=== PATIENT | female | born 1980 | race African-American/Black ===

== ENCOUNTER 2017-11-19 15:15 | Emergency (ER) | END 2017-11-19 16:24 | disposition home or self-care (01) ==

== ENCOUNTER 2018-10-23 17:07 | Emergency (ER) | payer MEDICARE, OTHER ==
[~2018-10-23] VITALS: Ht 167.6 cm; Wt 52.4 kg
[~2018-10-23 17:07] MED LIST: ALBU8.5H8; ALBU8.5H8 INH; AZIT250T PO; BENZ-6 PO; CEPH-443 PO; CLIN300C10 PO; CODE118S PO; CODE5LIQ2 PO; CYCL10TA7 PO; FER325 PO; FIORICET PO; GUAI118L4 PO; GUAI118L94 PO; GUAI5SYR2 PO; IBUP-1542 PO; IBUP-1544 PO; MED4DP PO; METO10TA92 PO; NAPR-688 PO; NITR-58 PO; PRED20TA PO; PROM6.25 PO; PROM6.256 PO; SODI44SP11 NASAL; TRAM50TA2 PO
[2018-10-23 17:14] VITALS: BP 115/62; PULSE 69; RESP 20; Ht 167.6 cm; Wt 52.4 kg
[2018-10-24] MEDS ORDERED: PROM5SYR2 PO (14:15)
[2018-10-24] MEDS ORDERED: AZIT250T PO (14:15)
== END 2018-10-23 20:00 | disposition left against medical advice (07) ==
LOC: FTE 17:07
DX: Z53.21 Procedure and treatment not carried out due to patient leaving prior to being seen by health care provider (principal)

== ENCOUNTER 2018-10-24 12:07 | Emergency (ER) | payer MEDICARE, OTHER ==
[2018-10-24] MEDS ORDERED: PROM5SYR2 PO (14:15)
[2018-10-24] MEDS ORDERED: AZIT250T PO (14:15)
--- NOTE | 2018-10-24 14:19 | ERD ---
ER Documentation Chief Complaint Chief Complaint HPI 38-year-old female presents with complaint of cough for the past 2 weeks. Patient states that cough is worse at night. She also states is been having some intermittent fevers. Patient denies night sweats, weight loss, fatigue, hemoptysis, wheezing, dyspnea, pleuritic chest pain, or orthopnea. Denies past medical history. Denies allergies. Denies medications. Denies surgeries. Denies alcohol, tobacco, or drug use. ROS All systems reviewed and are negative except as per history of present illness. Medications Home Meds Active Scripts Promethazine HCl/Codeine (Prometh-Codein 6.25-10 mg/5 ml) 5 Ml Syrup, 5 ML PO Q4 for cough, #4 OZ Prov:ELIN MI 10/24/18 Azithromycin* (Zithromax*) 250 Mg Tablet, 250 MG PO .ZPACK DIRECTED for cough, #6 TAB TAKE 500 MG (2 TABS) THE FIRST DAY THEN 250 MG (1 TAB) DAYS 2-5 Prov:ELIN MI 10/24/18 Metoclopramide* (Reglan*) 10 Mg Tablet, 10 MG PO Q8 PRN for NAUSEA AND/OR VO MITING, #10 TAB Prov:EASTON GUZMAN MD 11/19/17 Acetamin/Butalbital/Caffeine* (Fioricet*) [id number] Tab, 2 TAB PO Q6H PRN for PAIN, #30 TAB Prov:EASTON GUZMAN MD 11/19/17 Albuterol Sulfate* (Proair HFA*) 8.5 Gm Hfa.aer.ad, 2 PUFF INH Q4, #1 INHALER Prov:DANAE REBOLLAR 05/01/16 Nitrofurantoin Monohyd Macrocr* (Macrobid*) 100 Mg Capsr, 100 MG PO BID for 7 Days, CAP Prov:DANAE REBOLLAR 05/01/16 Ibuprofen* (Motrin*) 600 Mg Tab, 600 MG PO Q6, #30 TAB Prov:DANAE REBOLLAR 05/01/16 Guaifenesin-Dextromethorphan* (Robitussin* DM) 100MG/10MG/5ML Syrup, 5 ML PO Q4H PRN for COUGH for 7 Days, ML Prov:MARGY WOOD PA-C 04/13/16 Azithromycin* (Zithromax*) 250 Mg Tablet, 250 MG PO DAILY for 5 Days, #6 TAB Prov:MARGY WOOD PA-C 04/13/16 Albuterol Sulfate* (Proair HFA*) 8.5 Gm Hfa.aer.ad, 2 PUFF INH Q4, #1 INHALER Prov:LUIS PALMER PA-C 02/14/16 Benzonatate* (Tessalon Perle*) 100 Mg Capsule, 100 MG PO Q8H PRN for COUGH, #30 CAP Prov:MURIEL OSEGUERA PA-C 01/04/16 Promethazine w/Codeine* (Phenergan w/Codeine* Syrup) 5 Ml Syrup, 5 ML PO Q4H PRN for COUGH, #100 ML Prov:MURIEL OSEGUERA PA-C 01/04/16 Ibuprofen* (Motrin*) 600 Mg Tab, 600 MG PO Q6, #20 TAB Prov:OLGA OCHOA MD 12/05/15 Tramadol HCl (Tramadol HCl) 50 Mg Tablet, 50 MG PO Q4 PRN for PAIN, #16 TAB Prov:OLGA OCHOA MD 12/05/15 Sodium Chloride (Saline Nasal [place]) 45 Ml [place], 2 SPRAYS NASAL Q2H PRN for NASAL CONGESTION, #1 BOTTLE Prov:DOLLY NETTLES NP 11/24/15 Guaifenesin-Codeine Phosphate* (Guaifenesin* with Codeine Liq) 120 Ml Liquid, 5 ML PO Q4H PRN for COUGH, #60 ML Prov:DOLLY NETTLES NP 11/24/15 Benzonatate* (Tessalon Perle*) 100 Mg Capsule, 100 MG PO Q8H PRN for COUGH, #20 CAP Prov:LUIS PALMER PA-C 10/17/15 Promethazine w/Codeine (Phenergan w/Codeine Syrup) 5 Ml Syrup, 5 ML PO Q6 PRN for COUGH, #120 ML Prov:LUIS PALMER PA-C 10/17/15 Albuterol Sulfate* (Proair HFA*) 8.5 Gm Hfa.aer.ad, 2 PUFF INH Q4, #1 INHALER Prov:LUIS PALMER PA-C 10/17/15 Prednisone* (Prednisone*) 20 Mg Tab, 40 MG PO DAILY for 4 Days, TAB Prov:MURIEL OSEGUERA PA-C 10/09/15 Albuterol Sulfate* (Proair HFA*) 8.5 Gm Hfa.aer.ad, 2 PUFF INH Q4, #1 INHALER Prov:MURIEL OSEGUERA PA-C 10/09/15 Guaifenesin/D-Methorphan Hb/Pe (ROBITUSSIN COUGH-COLD CF LIQ) 118 Ml Liquid, 5 ML PO Q8, #118 ML Prov:KEVIN BELTRE DO 10/07/15 Clindamycin Hcl* (Clindamycin Hcl*) 300 Mg Capsule, 300 MG PO TID for 7 Days, CAP Prov:KEVIN BELTRE DO 10/07/15 Cyclobenzaprine Hcl* (Cyclobenzaprine Hcl*) 10 Mg Tablet, 10 MG PO TID, #15 TAB Prov:FLACO CAMACHO NP 09/17/15 Promethazine w/Codeine* (Phenergan w/Codeine* Syrup) 5 Ml Syrup, 10 ML PO Q4H PRN for COUGH for 4 Days, ML Prov:LUANN DIEZ NP 08/06/15 Methylprednisolone* (Medrol* DOSE PACK) 4 Mg/Dose-Pack Tab.ds.pk, 4 MG PO . DIRECTED for 7 Days, PACKET Prov:LUANN DIEZ NP 08/06/15 Albuterol Sulfate* (Proair HFA*) 8.5 Gm Hfa.aer.ad, 2 PUFF INH Q4, #1 INHALER Prov:LUANN DIEZ NP 08/06/15 Guaifenesin-Codeine Phosphate* (Robitussin* AC) 5 Ml Syrup, 5 ML PO Q6H PRN for COUGH, #120 ML Prov:KEVIN BELTRE DO 07/22/15 Cyclobenzaprine Hcl* (Cyclobenzaprine Hcl*) 10 Mg Tablet, 10 MG PO TID, #10 TAB Prov:KEVIN BELTRE DO 07/22/15 Naproxen* (Naproxen*) 500 Mg Tablet, 500 MG PO BID PRN for PAIN, #14 TAB Prov:KEVIN BELTRE DO 07/22/15 Albuterol Sulfate* (Proair HFA*) 8.5 Gm Hfa.aer.ad, 2 PUFF INH Q4H PRN for WHEEZING AND SOB, #1 INHALER Prov:KEVIN BELTRE DO 07/22/15 Promethazine Hcl* (Phenergan* Liq) 6.25 Mg/5 Ml Syrup, 6.25 MG PO Q6H PRN for COUGH, #60 ML Prov:DONAL LIGHT PA-C 04/16/15 Albuterol Sulfate* (Proair HFA*) 8.5 Gm Hfa.aer.ad, 2 PUFF INH Q4H PRN for WHEEZING AND SOB, #1 INH Prov:DONAL LIGHT PA-C 04/16/15 Ibuprofen* (Ibuprofen*) 800 Mg Tablet, 800 MG PO Q6H PRN for PAIN, #30 TAB do not exceed this dose. This is the max dose Prov:DONAL LIGHT PA-C 04/16/15 Cephalexin* (Keflex*) 500 Mg Capsule, 500 MG PO QID for 5 Days, CAP Prov:OLGA OCHOA MD 03/14/15 Ibuprofen* (Motrin*) 600 Mg Tab, 600 MG PO Q6, #20 TAB Prov:OLGA OCHOA MD 03/14/15 Albuterol Sulfate* (Proair HFA*) 8.5 Gm Hfa.aer.ad, 2 PUFF INH Q4 for 7 Days, INH 2 Refills Prov:OLGA OCHOA MD 03/14/15 Prednisone* (Prednisone*) 20 Mg Tab, 40 MG PO DAILY for 4 Days, TAB Prov:OLGA OCHOA MD 03/14/15 Reported Medications Ferrous Sulfate* (Ferrous Sulfate*) 325 Mg Tabec, 325 MG PO DAILY, TAB 02/07/15 Albuterol Sulfate* (Proair HFA*) 8.5 Gm Hfa.aer.ad, 1 PUFF EVERY 6 HOURS 12/15/12 Allergies Allergies: Coded Allergies: No Known Allergy (Unverified , 11/19/17) PMhx/Soc History of Surgery: Yes (hysterectomy 2017) Anesthesia Reaction: No Hx Neurological Disorder: Yes (migraine headache) Hx Respiratory Disorders: Yes (ASTHMA) Hx Cardiac Disorders: No Hx Psychiatric Problems: No Hx Miscellaneous Medical Probl: No Hx Alcohol Use: No Hx Substance Use: No Hx Tobacco Use: No FmHx Family History: No diabetes, No coronary disease, No other Physical Exam Physical Exam Const: No acute distress Head: Atraumatic Eyes: Normal Conjunctiva ENT: Normal External Ears, Nose and Mouth. Neck: Full range of motion. No meningismus. Resp: Clear to auscultation bilaterally Cardio: Regular rate and rhythm, no murmurs Abd: Soft, non tender, non distended. Normal bowel sounds Skin: No petechiae or rashes Back: No midline or flank tenderness Ext: No cyanosis, or edema Neur: Awake and alert Psych: Normal Mood and Affect Procedures/MDM MDM: Patient refused chest x-ray and wanted to be treated empirically with medication as she states she was in a patrick to leave. I have low suspicion for tubercolosis, pneumonia, pleural effusion, acute heart failure, foreign body aspiration, pulmonary embolism, pneumothorax, or other emergent etiology. Patients O2 sat is normal and is not having difficulty breathing, therefore patient is fit for discharge. Patient discharged with rx for azithromycin and promethazine to be used at night. And advised to follow up with PMD. Patient discharged with strict ER precautions. All questions answered at discharge. Departure Diagnosis: Primary Impression: Cough Condition: Stable Patient Instructions: Cough, Chronic, Uncertain Cause, (Adult) Referrals: [facility] YOU HAVE RECEIVED A MEDICAL SCREENING EXAM AND THE RESULTS INDICATE THAT YOU DO NOT HAVE A CONDITION THAT REQUIRES URGENT TREATMENT IN THE EMERGENCY DEPARTMENT. FURTHER EVALUATION AND TREATMENT OF YOUR CONDITION CAN WAIT UNTIL YOU ARE SEEN IN YOUR DOCTORS OFFICE WITHIN THE NEXT 1-2 DAYS. IT IS YOUR RESPONSIBILITY TO MAKE AN APPOINTMENT FOR FOLOW-UP CARE. IF YOU HAVE A PRIMARY DOCTOR --you should call your primary doctor and schedule an appointment IF YOU DO NOT HAVE A PRIMARY DOCTOR YOU CAN CALL OUR PHYSICIAN REFERRAL HOTLINE AT IF YOU CAN NOT AFFORD TO SEE A PHYSICIAN YOU CAN CHOSE FROM THE FOLLOWING [facility] [address] [facility] [address] [facility] [address] [facility] [address] [facility] [address] [facility]. [facility] [address] Additional Instructions: FOLLOW UP WITH YOUR PRIMARY CARE PHYSICIAN TOMORROW.Return to this facility if you are not improving as expected. ELIN MI October 24, 2018 14:19
== END 2018-10-24 14:41 | disposition home or self-care (01) ==
LOC: FTE 12:07
DX: R05 Cough (principal); J45.909 Unspecified asthma, uncomplicated
CPT/HCPCS: 99283

== ENCOUNTER 2018-11-15 10:45 | Emergency (ER) | payer MEDICARE, OTHER ==
[~2018-11-15] VITALS: Wt 52.5 kg
[~2018-11-15 10:45] MED LIST changes: +PROM5SYR2 PO
[2018-11-15 10:49] VITALS: BP 150/62
[2018-11-15] MEDS ORDERED: METHYLPREDNISOLONE 125 MG INJ IM STA (11:14)
[2018-11-15] MEDS ORDERED: ALBUTEROL 0.083% (NEB) 2.5 MG/3 ML AMP NEB STA (11:14)
[2018-11-15] MEDS ORDERED: IPRATROPIUM (NEB) 0.5 MG/2.5 ML AMP NEB STA (11:14)
--- NOTE | 2018-11-15 11:22 | ERD ---
ER Documentation Chief Complaint Chief Complaint COUGH X 5 DAYS HPI Patient is a 38 years old female with past medical history of asthma presenting to the clinic for persistent dry cough X 5 days. Patient denies any shortness of breath, chest pain, throat pain, coryza, sputum production. Patient reports taking [id number] Dimetapp without any resolution. Patient states that her cough is worse at night and keeps her from sleep and admits to headache with coughing only. Patient states that her current cough is not to her asthma exacerbation. Patient states that she has an albuterol inhaler which improves her cough at home. Patient is requesting promethazine with codeine. ROS All systems reviewed and are negative except as per history of present illness. Medications Home Meds Active Scripts Prednisone* (Prednisone*) 20 Mg Tab, 40 MG PO DAILY for 4 Days, TAB Prov:RONY KING PA-C 11/15/18 Dextromethorphan Hb-Promethazine Hcl* (Promethazine DM* Syrup) 473 Ml Syrup, 5 ML PO Q6 PRN for COUGH for 7 Days, ML Prov:RONY KING PA-C 11/15/18 Promethazine HCl/Codeine (Prometh-Codein 6.25-10 mg/5 ml) 5 Ml Syrup, 5 ML PO Q4 for cough, #4 OZ Prov:ELIN MI 10/24/18 Azithromycin* (Zithromax*) 250 Mg Tablet, 250 MG PO .ZPACK DIRECTED for cough, #6 TAB TAKE 500 MG (2 TABS) THE FIRST DAY THEN 250 MG (1 TAB) DAYS 2-5 Prov:ELIN MI 10/24/18 Metoclopramide* (Reglan*) 10 Mg Tablet, 10 MG PO Q8 PRN for NAUSEA AND/OR VOMITING, #10 TAB Prov:EASTON GUZMAN MD 11/19/17 Acetamin/Butalbital/Caffeine* (Fioricet*) [id number] Tab, 2 TAB PO Q6H PRN for PAIN, #30 TAB Prov:EASTON GUZMAN MD 11/19/17 Albuterol Sulfate* (Proair HFA*) 8.5 Gm Hfa.aer.ad, 2 PUFF INH Q4, #1 INHALER Prov:DANAE REBOLLAR 05/01/16 Nitrofurantoin Monohyd Macrocr* (Macrobid*) 100 Mg Capsr, 100 MG PO BID for 7 Days, CAP Prov:DANAE REBOLLAR 05/01/16 Ibuprofen* (Motrin*) 600 Mg Tab, 600 MG PO Q6, #30 TAB Prov:DANAE REBOLLAR 05/01/16 Guaifenesin-Dextromethorphan* (Robitussin* DM) 100MG/10MG/5ML Syrup, 5 ML PO Q4H PRN for COUGH for 7 Days, ML Prov:MARGY WOOD PA-C 04/13/16 Azithromycin* (Zithromax*) 250 Mg Tablet, 250 MG PO DAILY for 5 Days, #6 TAB Prov:MARGY WOODC 04/13/16 Albuterol Sulfate* (Proair HFA*) 8.5 Gm Hfa.aer.ad, 2 PUFF INH Q4, #1 INHALER Prov:LUIS PALMER PA-C 02/14/16 Benzonatate* (Tessalon Perle*) 100 Mg Capsule, 100 MG PO Q8H PRN for COUGH, #30 CAP Prov:MURIEL OSEGUERA PA-C 01/04/16 Promethazine w/Codeine* (Phenergan w/Codeine* Syrup) 5 Ml Syrup, 5 ML PO Q4H PRN for COUGH, #100 ML Prov:MURIEL OSEGUERA PA-C 01/04/16 Ibuprofen* (Motrin*) 600 Mg Tab, 600 MG PO Q6, #20 TAB Prov:OLGA OCHOA MD 12/05/15 Tramadol HCl (Tramadol HCl) 50 Mg Tablet, 50 MG PO Q4 PRN for PAIN, #16 TAB Prov:OLGA OCHOA MD 12/05/15 Sodium Chloride (Saline Nasal [place]) 45 Ml [place], 2 SPRAYS NASAL Q2H PRN for NASAL CONGESTION, #1 BOTTLE Prov:DOLLY NETTLES NP 11/24/15 Guaifenesin-Codeine Phosphate* (Guaifenesin* with Codeine Liq) 120 Ml Liquid, 5 ML PO Q4H PRN for COUGH, #60 ML Prov:DOLLY NETTLES [employer] 11/24/15 Benzonatate* (Tessalon Perle*) 100 Mg Capsule, 100 MG PO Q8H PRN for COUGH, #20 CAP Prov:LUIS PALMER PA-C 10/17/15 Promethazine w/Codeine (Phenergan w/Codeine Syrup) 5 Ml Syrup, 5 ML PO Q6 PRN for COUGH, #120 ML Prov:LUIS PALMER PA-C 10/17/15 Albuterol Sulfate* (Proair HFA*) 8.5 Gm Hfa.aer.ad, 2 PUFF INH Q4, #1 INHALER Prov:LUIS PALMER PA-C 10/17/15 Prednisone* (Prednisone*) 20 Mg Tab, 40 MG PO DAILY for 4 Days, TAB Prov:MURIEL OSEGUERA PA-C 10/09/15 Albuterol Sulfate* (Proair HFA*) 8.5 Gm Hfa.aer.ad, 2 PUFF INH Q4, #1 INHALER Prov:MURIEL OSEGUERA PA-C 10/09/15 Guaifenesin/D-Methorphan Hb/Pe (ROBITUSSIN COUGH-COLD CF LIQ) 118 Ml Liquid, 5 ML PO Q8, #118 ML Prov:KEVIN BELTRE DO 10/07/15 Clindamycin Hcl* (Clindamycin Hcl*) 300 Mg Capsule, 300 MG PO TID for 7 Days, CAP Prov:KEVIN BELTRE DO 10/07/15 Cyclobenzaprine Hcl* (Cyclobenzaprine Hcl*) 10 Mg Tablet, 10 MG PO TID, #15 TAB Prov:FLACO CAMACHO NP 09/17/15 Promethazine w/Codeine* (Phenergan w/Codeine* Syrup) 5 Ml Syrup, 10 ML PO Q4H PRN for COUGH for 4 Days, ML Prov:LUANN DIEZ NP 08/06/15 Methylprednisolone* (Medrol* DOSE PACK) 4 Mg/Dose-Pack Tab.ds.pk, 4 MG PO . DIRECTED for 7 Days, PACKET Prov:LUANN DIEZ NP 08/06/15 Albuterol Sulfate* (Proair HFA*) 8.5 Gm Hfa.aer.ad, 2 PUFF INH Q4, #1 INHALER Prov:LUANN DIEZ NP 08/06/15 Guaifenesin-Codeine Phosphate* (Robitussin* AC) 5 Ml Syrup, 5 ML PO Q6H PRN for COUGH, #120 ML Prov:PATT,KEVIN DO 07/22/15 Cyclobenzaprine Hcl* (Cyclobenzaprine Hcl*) 10 Mg Tablet, 10 MG PO TID, #10 TAB Prov:PATTKEVIN DO 07/22/15 Naproxen* (Naproxen*) 500 Mg Tablet, 500 MG PO BID PRN for PAIN, #14 TAB Prov:PATTSAN [facility] DO 07/22/15 Albuterol Sulfate* (Proair HFA*) 8.5 Gm Hfa.aer.ad, 2 PUFF INH Q4H PRN for WHEEZING AND SOB, #1 INHALER Prov:PATTSAN CARL[facility] DO 07/22/15 Promethazine Hcl* (Phenergan* Liq) 6.25 Mg/5 Ml Syrup, 6.25 MG PO Q6H PRN for COUGH, #60 ML Prov:DONAL LIGHT PA-C 04/16/15 Albuterol Sulfate* (Proair HFA*) 8.5 Gm Hfa.aer.ad, 2 PUFF INH Q4H PRN for WHEEZING AND SOB, #1 INH Prov:DONAL LIGHT PA-C 04/16/15 Ibuprofen* (Ibuprofen*) 800 Mg Tablet, 800 MG PO Q6H PRN for PAIN, #30 TAB do not exceed this dose. This is the max dose Prov:DONAL LIGHT PA-C 04/16/15 Cephalexin* (Keflex*) 500 Mg Capsule, 500 MG PO QID for 5 Days, CAP Prov:OLGA OCHOA MD 03/14/15 Ibuprofen* (Motrin*) 600 Mg Tab, 600 MG PO Q6, #20 TAB Prov:OLGA OCHOA MD 03/14/15 Albuterol Sulfate* (Proair HFA*) 8.5 Gm Hfa.aer.ad, 2 PUFF INH Q4 for 7 Days, INH 2 Refills Prov:OLGA OCHOA MD 03/14/15 Prednisone* (Prednisone*) 20 Mg Tab, 40 MG PO DAILY for 4 Days, TAB Prov:OLGA OCHOA MD 03/14/15 Reported Medications Ferrous Sulfate* (Ferrous Sulfate*) 325 Mg Tabec, 325 MG PO DAILY, TAB 02/07/15 Albuterol Sulfate* (Proair HFA*) 8.5 Gm Hfa.aer.ad, 1 PUFF EVERY 6 HOURS 12/15/12 Allergies Allergies: Coded Allergies: No Known Allergy (Unverified , 11/19/17) PMhx/Soc Patient reports of past medical history of asthma. Patient reports of past surgical history of total abdominal hysterectomy History of Surgery: Yes (hysterectomy 2016) Anesthesia Reaction: No Hx Neurological Disorder: Yes (migraine headache) Hx Respiratory Disorders: Yes (ASTHMA) Hx Cardiac Disorders: No Hx Psychiatric Problems: No Hx Miscellaneous Medical Probl: No Hx Alcohol Use: No Hx Substance Use: No Hx Tobacco Use: No FmHx Family History: No diabetes, No coronary disease, No other Physical Exam Vitals Vital Signs Date Temp Pulse Resp B/P (MAP) Pulse Ox O2 O2 Flow FiO2 Time Delivery Rate 11/15/18 104 18 100 Room Air 13:05 11/15/18 60 20 95 21 11:39 11/15/18 97.4 78 18 150/62 99 10:49 (91) Physical Exam Const: No acute distress Head: Atraumatic Eyes: Normal Conjunctiva ENT: Normal External Ears, Nose and Mouth. Neck: Full range of motion. No meningismus. Resp: Clear to auscultation bilaterally. Diminished breath sounds bilaterally. Cardio: Regular rate and rhythm, no murmurs Ext: No cyanosis, or edema Neur: Awake and alert Psych: Normal Mood and Affect Results 24 hrs Current Medications Medications Dose Sig/Zaki Start Time Status Last (Trade) Ordered Route PRN Stop Time Admin Dose Reason Admin Albuterol 5 mg ONCE STAT 11/15/18 DC 11/15/18 (Proventil NEB 11:14 11:35 0.083% (Neb)) 11/15/18 11:19 Ipratropium 1 mg ONCE STAT 11/15/18 DC 11/15/18 [place] NEB 11:14 11:35 (Atrovent 11/15/18 11:19 0.02% (Neb)) 125 mg ONCE STAT 11/15/18 DC 11/15/18 Methylprednis IM 11:14 11:26 olone Sodium 11/15/18 11:19 Succinate (Solu-Medrol) Procedures/MDM Patient was evaluated for recurring cough and was given nebulizer and Solu-M edrol IM in hospital improvement of symptoms. Lung exam post treatment had improved lung sounds that were CTA bilaterally. Patient requested promethazine with codeine, however, provider denied codeine stating that he will give promethazine HCL instead. Provider informed patient that codeine is not the solution to her problems and she needs to follow-up with her PCP which she has an appointment in the following week. Patient reports that she has been evaluated by internal control specialist in the past and states that her lungs are fine. X-ray was withheld as patient has presented to clinic multiple times in the past for similar symptoms with improve lung function post treatment in hospital. Departure Diagnosis: Primary Impression: Cough Condition: Stable Additional Instructions: Patient advised to return to the ED immediately for new or worsening symptoms. Patient advised to follow up with primary care provider in the next 24-48 hours. Patient verbalized understanding and agrees with treatment plan and course of action. If patient has no primary care they may follow up with [facility] + [facility] [address] [place] [id number] or [facility] [id number] [place] [phone] or [facility] [address] [place] [address] RONY KING PA-C November 15, 2018 11:22
[2018-11-15] MEDS ORDERED: PRED20TA PO (12:17)
[2018-11-15] MEDS ORDERED: D-ME473S2 PO (12:17)
[2018-11-15 13:05] VITALS: PULSE 104; RESP 18
== END 2018-11-15 13:05 | disposition home or self-care (01) ==
LOC: FTE 10:45
DX: R05 Cough (principal); J45.909 Unspecified asthma, uncomplicated
CPT/HCPCS: 94664; 96372; 99284; J2930

== ENCOUNTER 2018-12-28 08:25 | Emergency (ER) | payer MEDICARE, OTHER ==
[~2018-12-28] VITALS: Ht 160 cm; Wt 52.7 kg
[~2018-12-28 08:25] MED LIST changes: +D-ME473S2 PO
[2018-12-28 08:28] VITALS: BP 139/76; PULSE 93; RESP 17; Ht 160 cm; Wt 52.7 kg
--- NOTE | 2018-12-28 08:53 | ERD ---
ER Documentation Chief Complaint Chief Complaint cough, congestion, bug bites, onset 4 days, no sob HPI 38-year-old female with history of asthma is complaining of cough and congestion for 4 days. She states is usually worse at night. She is been does help temporarily. No fever. No phlegm. No hemoptysis or unplanned weight loss. Also is complaining of possible bug bite to the left knee. ROS All systems reviewed and are negative except as per history of present illness. Medications Home Meds Active Scripts Prednisone* (Prednisone*) 20 Mg Tab, 40 MG PO DAILY for 4 Days, TAB Prov:RONY KING PA-C 11/15/18 Dextromethorphan Hb-Promethazine Hcl* (Promethazine DM* Syrup) 473 Ml Syrup, 5 ML PO Q6 PRN for COUGH for 7 Days, ML Prov:RONY KING PA-C 11/15/18 Promethazine HCl/Codeine (Prometh-Codein 6.25-10 mg/5 ml) 5 Ml Syrup, 5 ML PO Q4 for cough, #4 OZ Prov:ELIN MI 10/24/18 Azithromycin* (Zithromax*) 250 Mg Tablet, 250 MG PO .ZPACK DIRECTED for cough, #6 TAB TAKE 500 MG (2 TABS) THE FIRST DAY THEN 250 MG (1 TAB) DAYS 2-5 Prov:ELIN MI 10/24/18 Metoclopramide* (Reglan*) 10 Mg Tablet, 10 MG PO Q8 PRN for NAUSEA AND/OR VOMITING, #10 TAB Prov:EASTON GUZMAN MD 11/19/17 Acetamin/Butalbital/Caffeine* (Fioricet*) [id number] Tab, 2 TAB PO Q6H PRN for PAIN, #30 TAB Prov:EASTON GUZMAN MD 11/19/17 Albuterol Sulfate* (Proair HFA*) 8.5 Gm Hfa.aer.ad, 2 PUFF INH Q4, #1 INHALER Prov:DANAE REBOLLAR 05/01/16 Nitrofurantoin Monohyd Macrocr* (Macrobid*) 100 Mg Capsr, 100 MG PO BID for 7 Days, CAP Prov:DANAE REBOLLAR 05/01/16 Ibuprofen* (Motrin*) 600 Mg Tab, 600 MG PO Q6, #30 TAB Prov:DANAE REBOLLAR 05/01/16 Guaifenesin-Dextromethorphan* (Robitussin* DM) 100MG/10MG/5ML Syrup, 5 ML PO Q4H PRN for COUGH for 7 Days, ML Prov:MARGY WOOD PA-C 04/13/16 Azithromycin* (Zithromax*) 250 Mg Tablet, 250 MG PO DAILY for 5 Days, #6 TAB Prov:MARGY WOOD PA-C 04/13/16 Albuterol Sulfate* (Proair HFA*) 8.5 Gm Hfa.aer.ad, 2 PUFF INH Q4, #1 INHALER Prov:LUIS PALMER PA-C 02/14/16 Benzonatate* (Tessalon Perle*) 100 Mg Capsule, 100 MG PO Q8H PRN for COUGH, #30 CAP Prov:MURIEL OSEGUERA PA-C 01/04/16 Promethazine w/Codeine* (Phenergan w/Codeine* Syrup) 5 Ml Syrup, 5 ML PO Q4H PRN for COUGH, #100 ML Prov:MURIEL OSEGUERA PA-C 01/04/16 Ibuprofen* (Motrin*) 600 Mg Tab, 600 MG PO Q6, #20 TAB Prov:OLGA OCHOA MD 12/05/15 Tramadol HCl (Tramadol HCl) 50 Mg Tablet, 50 MG PO Q4 PRN for PAIN, #16 TAB Prov:OLGA OCHOA MD 12/05/15 Sodium Chloride (Saline Nasal Pep) 45 Ml Pep, 2 SPRAYS NASAL Q2H PRN for NASAL CONGESTION, #1 BOTTLE Prov:DOLLY NETTLES NP 11/24/15 Guaifenesin-Codeine Phosphate* (Guaifenesin* with Codeine Liq) 120 Ml Liquid, 5 ML PO Q4H PRN for COUGH, #60 ML Prov:DOLLY NETTLES NP 11/24/15 Benzonatate* (Tessalon Perle*) 100 Mg Capsule, 100 MG PO Q8H PRN for COUGH, #20 CAP Prov:LUIS PALMER PA-C 10/17/15 Promethazine w/Codeine (Phenergan w/Codeine Syrup) 5 Ml Syrup, 5 ML PO Q6 PRN for COUGH, #120 ML Prov:LUIS PALMER PA-C 10/17/15 Albuterol Sulfate* (Proair HFA*) 8.5 Gm Hfa.aer.ad, 2 PUFF INH Q4, #1 INHALER Prov:LUIS PALMER PA-C 10/17/15 Prednisone* (Prednisone*) 20 Mg Tab, 40 MG PO DAILY for 4 Days, TAB Prov:MURIEL OSEGUERA PA-C 10/09/15 Albuterol Sulfate* (Proair HFA*) 8.5 Gm Hfa.aer.ad, 2 PUFF INH Q4, #1 INHALER Prov:MURIEL OSEGUERA PA-C 10/09/15 Guaifenesin/D-Methorphan Hb/Pe (ROBITUSSIN COUGH-COLD CF LIQ) 118 Ml Liquid, 5 ML PO Q8, #118 ML Prov:KEVIN BELTRE DO 10/07/15 Clindamycin Hcl* (Clindamycin Hcl*) 300 Mg Capsule, 300 MG PO TID for 7 Days, CAP Prov:KEVIN BELTRE DO 10/07/15 Cyclobenzaprine Hcl* (Cyclobenzaprine Hcl*) 10 Mg Tablet, 10 MG PO TID, #15 TAB Prov:FLACO CAMACHO NP 09/17/15 Promethazine w/Codeine* (Phenergan w/Codeine* Syrup) 5 Ml Syrup, 10 ML PO Q4H PRN for COUGH for 4 Days, ML Prov:LUANN DIEZ NP 08/06/15 Methylprednisolone* (Medrol* DOSE PACK) 4 Mg/Dose-Pack Tab.ds.pk, 4 MG PO . DIRECTED for 7 Days, PACKET Prov:LUANN DIEZ NP 08/06/15 Albuterol Sulfate* (Proair HFA*) 8.5 Gm Hfa.aer.ad, 2 PUFF INH Q4, #1 INHALER Prov:LUANN DIEZ NP 08/06/15 Guaifenesin-Codeine Phosphate* (Robitussin* AC) 5 Ml Syrup, 5 ML PO Q6H PRN for COUGH, #120 ML Prov:KEVIN BELTRE DO 07/22/15 Cyclobenzaprine Hcl* (Cyclobenzaprine Hcl*) 10 Mg Tablet, 10 MG PO TID, #10 TAB Prov:KEVIN BELTRE DO 07/22/15 Naproxen* (Naproxen*) 500 Mg Tablet, 500 MG PO BID PRN for PAIN, #14 TAB Prov:KEVIN BELTRE DO 07/22/15 Albuterol Sulfate* (Proair HFA*) 8.5 Gm Hfa.aer.ad, 2 PUFF INH Q4H PRN for WHEEZING AND SOB, #1 INHALER Prov:KEVIN BELTRE DO 07/22/15 Promethazine Hcl* (Phenergan* Liq) 6.25 Mg/5 Ml Syrup, 6.25 MG PO Q6H PRN for COUGH, #60 ML Prov:DONAL LIGHT PA-C 04/16/15 Albuterol Sulfate* (Proair HFA*) 8.5 Gm Hfa.aer.ad, 2 PUFF INH Q4H PRN for WHEEZING AND SOB, #1 INH Prov:DONAL LIGHT PA-C 04/16/15 Ibuprofen* (Ibuprofen*) 800 Mg Tablet, 800 MG PO Q6H PRN for PAIN, #30 TAB do not exceed this dose. This is the max dose Prov:DONAL LIGHT PA-C 04/16/15 Cephalexin* (Keflex*) 500 Mg Capsule, 500 MG PO QID for 5 Days, CAP Prov:OLGA OCHOA MD 03/14/15 Ibuprofen* (Motrin*) 600 Mg Tab, 600 MG PO Q6, #20 TAB Prov:OLGA OCHOA MD 03/14/15 Albuterol Sulfate* (Proair HFA*) 8.5 Gm Hfa.aer.ad, 2 PUFF INH Q4 for 7 Days, INH 2 Refills Prov:OLGA OCHOA MD 03/14/15 Prednisone* (Prednisone*) 20 Mg Tab, 40 MG PO DAILY for 4 Days, TAB Prov:OLGA OCHOA MD 03/14/15 Reported Medications Ferrous Sulfate* (Ferrous Sulfate*) 325 Mg Tabec, 325 MG PO DAILY, TAB 02/07/15 Albuterol Sulfate* (Proair HFA*) 8.5 Gm Hfa.aer.ad, 1 PUFF EVERY 6 HOURS 12/15/12 Allergies Allergies: Coded Allergies: No Known Allergy (Unverified , 11/19/17) PMhx/Soc Medical and Surgical Hx: pt denies Medical Hx, pt denies Surgical Hx History of Surgery: No Anesthesia Reaction: No Hx Neurological Disorder: No Hx Respiratory Disorders: No Hx Cardiac Disorders: No Hx Psychiatric Problems: No Hx Miscellaneous Medical Probl: No Hx Alcohol Use: No Hx Substance Use: No Hx Tobacco Use: No Smoking Status: Never smoker FmHx Family History: No diabetes Physical Exam Vitals Vital Signs Date Temp Pulse Resp B/P (MAP) Pulse Ox O2 O2 Flow FiO2 Time Delivery Rate 12/28/18 97.6 93 17 139/76 100 08:28 (97) Physical Exam Const: No acute distress Head: Atraumatic Eyes: Normal Conjunctiva ENT: Normal External Ears, Nose and Mouth. Neck: Full range of motion. No meningismus. Resp: Clear to auscultation bilaterally Cardio: Regular rate and rhythm, no murmurs Abd: Soft, non tender, non distended. Normal bowel sounds Skin: Small round slightly red dime size lesion on knee over distal femur, no warmth or tenderness, no pustule Results 24 hrs Current Medications Medications Dose Sig/Zaki Start Time Status Last (Trade) Ordered Route PRN Stop Time Admin Dose Reason Admin 10 mg ONCE ONCE 12/28/18 Dexamethasone PO 09:00 12/28/18 (Decadron) 09:01 Procedures/MDM Patient has history of asthma here with cough for 4 days. At this time her lungs do sound clear. She is well-appearing in no distress. I gave her a dose of Decadron. She also has what is likely a bug bite but does not appear infected. She could take Benadryl at home or apply [id number] topical steroids as needed. Patient counseled regarding my diagnostic impression and care plan. Prior to discharge all questions answered. Pt agrees with treatment plan and understands strict return precautions. Pt is instructed to follow up with primary care provider within 24-48 hours. Precautionary instructions provid ed including instructions to return to the ER if not improving or for any worsening or changing symptoms or concerns. Departure Diagnosis: Primary Impression: Bronchitis Condition: Stable Patient Instructions: Bronchitis, No Antibiotic (Adult) Additional Instructions: Call your primary care doctor TOMORROW for an appointment during the next 1-2 days.See the doctor sooner or return here if your condition worsens before your appointment time. ALISA HI PA-C Dec 28, 2018 08:53
[2018-12-28] MEDS ORDERED: DEXAMETHASONE 10 MG/ML 1 ML INJ PO ONE (09:00)
== END 2018-12-28 09:13 | disposition home or self-care (01) ==
LOC: FTE 08:25
DX: J40 Bronchitis, not specified as acute or chronic (principal)
CPT/HCPCS: 99283; J1100

== ENCOUNTER 2019-01-16 11:02 | Emergency (ER) | payer MEDICARE, OTHER ==
[~2019-01-16] VITALS: Ht 157.5 cm; Wt 52.1 kg
[~2019-01-16 11:02] MED LIST changes: +BENZ200C68 PO; +NAPR-985 PO
[2019-01-16 11:18] VITALS: BP 124/68; PULSE 93; RESP 20; Ht 157.5 cm; Wt 52.1 kg
[2019-01-16] MEDS ORDERED: KETOROLAC 30 MG INJ IM STA (11:53)
--- NOTE | 2019-01-16 19:32 | ERD ---
ER Documentation Chief Complaint Chief Complaint c/o lower back pain for a couple of days, denies injury HPI 38yo Female presents with complaint of chronic low back pain, with exacerbation x 3 days as well as cough x 3 days. Pt denies fever, chills, SOB, wheezes, or hemoptysis. Denies recent injury or trauma. Has not taken any medication for her back pain prior to presentation today. Denies hx of DM, IVDA, or malignancy. ROS All systems reviewed and are negative except as per history of present illness. Medications Home Meds Active Scripts Benzonatate* (Benzonatate*) 200 Mg Capsule, 200 MG PO TID PRN for COUGH, #30 CAP Prov:JOCELYNN AVELAR PA-C 01/16/19 Cyclobenzaprine Hcl* (Cyclobenzaprine Hcl*) 10 Mg Tablet, 10 MG PO TID for MUSCLE SPASMS, #15 TAB Prov:JOCELYNN AVELAR PA-C 01/16/19 Naproxen* (Naprosyn*) 500 Mg Tablet, 500 MG PO BID PRN for PAIN AND/OR INFLAMMATION, #30 TAB Prov:JOCELYNN AVELAR PA-C 01/16/19 Prednisone* (Prednisone*) 20 Mg Tab, 40 MG PO DAILY for 4 Days, TAB Prov:RONY KIGN PA-C 11/15/18 Dextromethorphan Hb-Promethazine Hcl* (Promethazine DM* Syrup) 473 Ml Syrup, 5 ML PO Q6 PRN for COUGH for 7 Days, ML Prov:RONY KING PA-C 11/15/18 Promethazine HCl/Codeine (Prometh-Codein 6.25-10 mg/5 ml) 5 Ml Syrup, 5 ML PO Q4 for cough, #4 OZ Prov:ELIN MI 10/24/18 Azithromycin* (Zithromax*) 250 Mg Tablet, 250 MG PO .ZPACK DIRECTED for cough, #6 TAB TAKE 500 MG (2 TABS) THE FIRST DAY THEN 250 MG (1 TAB) DAYS 2-5 Prov:ELIN MI 10/24/18 Metoclopramide* (Reglan*) 10 Mg Tablet, 10 MG PO Q8 PRN for NAUSEA AND/OR VOMITING, #10 TAB Prov:EASTON GUZMAN MD 11/19/17 Acetamin/Butalbital/Caffeine* (Fioricet*) [id number] Tab, 2 TAB PO Q6H PRN for PAIN, #30 TAB Prov:EASTON GUZMAN MD 11/19/17 Albuterol Sulfate* (Proair HFA*) 8.5 Gm Hfa.aer.ad, 2 PUFF INH Q4, #1 INHALER Prov:DANAE REBOLLAR 05/01/16 Nitrofurantoin Monohyd Macrocr* (Macrobid*) 100 Mg Capsr, 100 MG PO BID for 7 Days, CAP Prov:DANAE REBOLLAR 05/01/16 Ibuprofen* (Motrin*) 600 Mg Tab, 600 MG PO Q6, #30 TAB Prov:DANAE REBOLLAR 05/01/16 Guaifenesin-Dextromethorphan* (Robitussin* DM) 100MG/10MG/5ML Syrup, 5 ML PO Q4H PRN for COUGH for 7 Days, ML Prov:MARGY WOOD PA-C 04/13/16 Azithromycin* (Zithromax*) 250 Mg Tablet, 250 MG PO DAILY for 5 Days, #6 TAB Prov:MARGY WOOD PA-C 04/13/16 Albuterol Sulfate* (Proair HFA*) 8.5 Gm Hfa.aer.ad, 2 PUFF INH Q4, #1 INHALER Prov:LUIS PALMER PA-C 02/14/16 Benzonatate* (Tessalon Perle*) 100 Mg Capsule, 100 MG PO Q8H PRN for COUGH, #30 CAP Prov:MURIEL OSEGUERA PA-C 01/04/16 Promethazine w/Codeine* (Phenergan w/Codeine* Syrup) 5 Ml Syrup, 5 ML PO Q4H PRN for COUGH, #100 ML Prov:MURIEL OSEGUERA PA-C 01/04/16 Ibuprofen* (Motrin*) 600 Mg Tab, 600 MG PO Q6, #20 TAB Prov:OLGA OCHOA MD 12/05/15 Tramadol HCl (Tramadol HCl) 50 Mg Tablet, 50 MG PO Q4 PRN for PAIN, #16 TAB Prov:OLGA OCHOA MD 12/05/15 Sodium Chloride (Saline Nasal [place]) 45 Ml [place], 2 SPRAYS NASAL Q2H PRN for NASAL CONGESTION, #1 BOTTLE Prov:DOLLY NETTLES NP 11/24/15 Guaifenesin-Codeine Phosphate* (Guaifenesin* with Codeine Liq) 120 Ml Liquid, 5 ML PO Q4H PRN for COUGH, #60 ML Prov:DOLLY NETTLES NP 11/24/15 Benzonatate* (Tessalon Perle*) 100 Mg Capsule, 100 MG PO Q8H PRN for COUGH, #20 CAP Prov:LUIS PALMER PA-C 10/17/15 Promethazine w/Codeine (Phenergan w/Codeine Syrup) 5 Ml Syrup, 5 ML PO Q6 PRN for COUGH, #120 ML Prov:LUIS PALMER PA-C 10/17/15 Albuterol Sulfate* (Proair HFA*) 8.5 Gm Hfa.aer.ad, 2 PUFF INH Q4, #1 INHALER Prov:LUIS PALMER PA-C 10/17/15 Prednisone* (Prednisone*) 20 Mg Tab, 40 MG PO DAILY for 4 Days, TAB Prov:MURIEL OSEGUERA PA-C 10/09/15 Albuterol Sulfate* (Proair HFA*) 8.5 Gm Hfa.aer.ad, 2 PUFF INH Q4, #1 INHALER Prov:MURIEL OSEGUERA PA-C 10/09/15 Guaifenesin/D-Methorphan Hb/Pe (ROBITUSSIN COUGH-COLD CF LIQ) 118 Ml Liquid, 5 ML PO Q8, #118 ML Prov:KEVIN BELTRE DO 10/07/15 Clindamycin Hcl* (Clindamycin Hcl*) 300 Mg Capsule, 300 MG PO TID for 7 Days, CAP Prov:KEVIN BELTRE DO 10/07/15 Cyclobenzaprine Hcl* (Cyclobenzaprine Hcl*) 10 Mg Tablet, 10 MG PO TID, #15 TAB Prov:FLACO CAMACHO NP 09/17/15 Promethazine w/Codeine* (Phenergan w/Codeine* Syrup) 5 Ml Syrup, 10 ML PO Q4H PRN for COUGH for 4 Days, ML Prov:LUANN DIEZ [employer]PORATE [employer]ER 08/06/15 Methylprednisolone* (Medrol* DOSE PACK) 4 Mg/Dose-Pack Tab.ds.pk, 4 MG PO . DIRECTED for 7 Days, PACKET Prov:LUANN DIEZ [employer] 08/06/15 Albuterol Sulfate* (Proair HFA*) 8.5 Gm Hfa.aer.ad, 2 PUFF INH Q4, #1 INHALER Prov:LUANN DIEZ [employer] T[employer]ER 08/06/15 Guaifenesin-Codeine Phosphate* (Robitussin* AC) 5 Ml Syrup, 5 ML PO Q6H PRN for COUGH, #120 ML Prov:KEVIN BELTRE DO 07/22/15 Cyclobenzaprine Hcl* (Cyclobenzaprine Hcl*) 10 Mg Tablet, 10 MG PO TID, #10 TAB Prov:PATTKEVIN DO 07/22/15 Naproxen* (Naproxen*) 500 Mg Tablet, 500 MG PO BID PRN for PAIN, #14 TAB Prov:PATTKEVIN DO 07/22/15 Albuterol Sulfate* (Proair HFA*) 8.5 Gm Hfa.aer.ad, 2 PUFF INH Q4H PRN for WHEEZING AND SOB, #1 INHALER Prov:PATT,KEVIN DO 07/22/15 Promethazine Hcl* (Phenergan* Liq) 6.25 Mg/5 Ml Syrup, 6.25 MG PO Q6H PRN for COUGH, #60 ML Prov:DONAL LIGHT PA-C 04/16/15 Albuterol Sulfate* (Proair HFA*) 8.5 Gm Hfa.aer.ad, 2 PUFF INH Q4H PRN for WHEEZING AND SOB, #1 INH Prov:DONAL LIGHT PA-C 04/16/15 Ibuprofen* (Ibuprofen*) 800 Mg Tablet, 800 MG PO Q6H PRN for PAIN, #30 TAB do not exceed this dose. This is the max dose Prov:DONAL LIGHT PA-C 04/16/15 Cephalexin* (Keflex*) 500 Mg Capsule, 500 MG PO QID for 5 Days, CAP Prov:OLGA OCHOA MD 03/14/15 Ibuprofen* (Motrin*) 600 Mg Tab, 600 MG PO Q6, #20 TAB Prov:OLGA OCHOA MD 03/14/15 Albuterol Sulfate* (Proair HFA*) 8.5 Gm Hfa.aer.ad, 2 PUFF INH Q4 for 7 Days, INH 2 Refills Prov:OLGA OCHOA MD 03/14/15 Prednisone* (Prednisone*) 20 Mg Tab, 40 MG PO DAILY for 4 Days, TAB Prov:OLGA OCHOA MD 03/14/15 Reported Medications Ferrous Sulfate* (Ferrous Sulfate*) 325 Mg Tabec, 325 MG PO DAILY, TAB 02/07/15 Albuterol Sulfate* (Proair HFA*) 8.5 Gm Hfa.aer.ad, 1 PUFF EVERY 6 HOURS 12/15/12 Allergies Allergies: Coded Allergies: No Known Allergy (Unverified , 11/19/17) PMhx/Soc History of Surgery: No Anesthesia Reaction: No Hx Neurological Disorder: No Hx Respiratory Disorders: No Hx Cardiac Disorders: No Hx Psychiatric Problems: No Hx Miscellaneous Medical Probl: No Hx Alcohol Use: No Hx Substance Use: No Hx Tobacco Use: No Physical Exam Vitals Vital Signs Date Temp Pulse Resp B/P (MAP) Pulse Ox O2 O2 Flow FiO2 Time Delivery Rate 01/16/19 98.4 93 20 124/68 99 11:18 (86) Physical Exam General: alert, no acute distress and cooperative, A&Ox3 Head/Eyes: normocephalic, atraumatic, PERRL, conjunctiva normal Neck: supple, nontender, full ROM, no midline vertebral tenderness, no LAD Lungs: no respiratory distress, lungs CTA bilaterally, no wheezes, no rhonchi, no retractions Cardio: HR normal, no pedal edema Skin: normal to inspection, color normal, warm, dry, intact Abdomen: soft, nontender, no rebound, no guarding Psych: calm, no SI/HI, no hallucinations Extremities: Inspection normal, Normal range of motion to all major joints Back: Inspection normal, no midline or CVA tenderness, bilateral lower lumbar paraspinous muscle spasm and tenderness to the left SI region, Full ROM, bilateral negative straight leg raise, normal dorsiflexion BLE, NVI distally. Neuro: alert, normal speech, no motor deficits, no sensory deficits, slow steady gait Results 24 hrs Laboratory Tests Test 01/16/19 12:06 POC Beta HCG, Qualitative NEGATIVE Current Medications Medications Dose Sig/Zaki Start Time Status Last (Trade) Ordered Route PRN Stop Time Admin Dose Reason Admin Ketorolac 30 mg ONCE STAT 01/16/19 DC 01/16/19 Tromethamine IM 11:53 12:04 (Toradol) 01/16/19 11:54 Procedures/MDM MDM: 38yo F patient presents today with atraumatic back pain. Although infection, malignancy, GI, , and vascular causes have been considered in this patient, the patients clinical presentation is most consistent with a musculoskeletal cause. Pt also complaining of cough, which I believe to be a chronic issue as she has presented multiple times in the past year for similar complaint. Pt requesting promethazine-codeine which I do not believe is indicated at this time. Pt will be prescribed tessalon for cough at this time. I have low suspicion for Pneumonia, PE, or other cardiopulmonary abnormality given unremarkable lung exam, no hemoptysis, and VSS. There is neither evidence of any acute neurologic damage, nor of loss of function and thus, advanced imaging studies have been deferred for back pain at this time. Patient will be treated conservatively with appropriate pain control with precautionary discharge instructions provided. Pt received Toradol and felxeril for pain while in ED as well as Rx for Naproxen and Flexeril to take at home. At this time pt stable for discharge with PCP f/u in 1-2 days. ED return precautions discussed. Departure Diagnosis: Primary Impression: Back pain Back pain location: low back pain Chronicity: chronic Back pain laterality: right Sciatica presence: unspecified whether sciatica present Qualified Codes: M54.5 - Low back pain; G89.29 - Other chronic pain Additional Impression: Cough Condition: Stable Patient Instructions: Cough, Chronic, Uncertain Cause (Child), Back Pain W/ Sciatica Referrals: [facility] YOU HAVE RECEIVED A MEDICAL SCREENING EXAM AND THE RESULTS INDICATE THAT YOU DO NOT HAVE A CONDITION THAT REQUIRES URGENT TREATMENT IN THE EMERGENCY DEPARTMENT. FURTHER EVALUATION AND TREATMENT OF YOUR CONDITION CAN WAIT UNTIL YOU ARE SEEN IN YOUR DOCTORS OFFICE WITHIN THE NEXT 1-2 DAYS. IT IS YOUR RESPONSIBILITY TO MAKE AN APPOINTMENT FOR FOLOW-UP CARE. IF YOU HAVE A PRIMARY DOCTOR --you should call your primary doctor and schedule an appointment IF YOU DO NOT HAVE A PRIMARY DOCTOR YOU CAN CALL OUR PHYSICIAN REFERRAL HOTLINE AT IF YOU CAN NOT AFFORD TO SEE A PHYSICIAN YOU CAN CHOSE FROM THE FOLLOWING [facility] CL[facility] [id number] [facility] [address] [facility] [address] [facility] [address] [facility] [address] [facility]. [facility]. [address] JOCELYNN RAMIREZ PA-C Jan 16, 2019 19:32
== END 2019-01-16 12:26 | disposition home or self-care (01) ==
LOC: FTE 11:02
DX: M54.5 Low back pain (principal); G89.29 Other chronic pain; R05 Cough
CPT/HCPCS: 81025; 96372; 99284; J1885